=== PATIENT | male | born 2000 | race Caucasian/White ===

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

== ENCOUNTER 2023-08-27 23:46 | Emergency (ER) | payer BC, SELFPAY ==
[~2023-08-27] VITALS: Ht 170.2 cm; Wt 118.5 kg
[2023-08-27 23:49] VITALS: BP 134/87; TEMP 97.1; O2SAT 98
== END 2023-08-28 00:39 | disposition left against medical advice (07) ==
LOC: M ED 23:46
DX: Z53.21 Procedure and treatment not carried out due to patient leaving prior to being seen by health care provider (principal)